=== PATIENT | male | born 1975 | race Caucasian/White ===

== ENCOUNTER 2023-06-01 08:55 | Day surgery (SDC) | payer OTHER ==
[2023-05-31 11:32] VITALS: BMI 35.6
[2023-06-01] MEDS ORDERED: Bacitracin Zinc Ointment 30 gm TUBE ONE (11:32)
[2023-06-01] MEDS ORDERED: EPINEPHrine 1 MG/ML VIAL ONE (11:32)
[2023-06-01] MEDS ORDERED: Lidocaine 1% (PF) 30 ML VIAL ONE (11:32)
[2023-06-01] MEDS ORDERED: Ketorolac Tromethamine 30 MG/ML VIAL ONE (13:46)
[2023-06-01] MEDS ORDERED: Dexamethasone 20 MG/5 ML VIAL ONE (13:46)
[2023-06-01] MEDS ORDERED: Ondansetron PF 4 MG/2 ML Vial ONE (13:46)
[2023-06-01] MEDS ORDERED: PROPOFOL 200 MG/20 ML VIAL ONE (13:46)
[2023-06-01] MEDS ORDERED: Lidocaine 1% PF 5 ML VIAL ONE (13:46)
[2023-06-01] MEDS ORDERED: Metoclopramide HCl 10 MG/2 ML VIAL ONE (13:46)
[2023-06-01] MEDS ORDERED: fentaNYL 50 mcg/mL 1 mL Vial ONE (14:12)
[2023-06-01] MEDS ORDERED: Famotidine/PF 20 mg/2ml Vial ONE (14:12)
== END 2023-06-01 16:25 | disposition home or self-care (01) ==
LOC: SDC 08:55
PROVIDERS: ATTEND Specialist
PROC: 0JB50ZX Excision of Left Neck Subcutaneous Tissue and Fascia, Open Approach, Diagnostic (ICD-10-PCS; principal; 2023-06-01)
DX: R59.0 Localized enlarged lymph nodes (principal); I10 Essential (primary) hypertension; M06.9 Rheumatoid arthritis, unspecified; M10.9 Gout, unspecified; J34.3 Hypertrophy of nasal turbinates; J30.9 Allergic rhinitis, unspecified; Z96.641 Presence of right artificial hip joint; Z90.89 Acquired absence of other organs; Z98.890 Other specified postprocedural states
CPT/HCPCS: 88184; 88307; 88312; 88341; 88342; 93005; 93010; J0171; J1100; J1885; J2001; J2405; J2704; J2765; J3010; S0028